=== PATIENT | female | born 1955 | race Caucasian/White ===

== ENCOUNTER 2017-03-16 18:39 | Emergency (ER) | payer OTHER ==
[2017-03-16] MEDS ORDERED: Take Home: Acetaminophen/HYDROcodone 325-10 MG, 5 Tab Pack PO ONE (19:01)
[2017-03-16] MEDS ORDERED: Take Home: Amoxicillin/Clavulanate K 875-125 MG Tab, 2 Tab Pack PO ONE ×2 (19:01→19:02)
[2017-03-16 19:22] VITALS: BP 185/95
--- NOTE | 2017-03-20 07:45 | ER ---
Date of Service: 03/16/2017 SUBJECTIVE: Dannielle presents to the emergency room with complaints of dental pain. The patient states that she broke one of her upper front teeth approximately 1 month ago and chipped the adjacent tooth approximately 2 days ago. She states that she did take a hydrocodone and has also taken ibuprofen and has been using Orajel with minimal improvement. She states that she has been experiencing discomfort for all of the day and states that she has been out on a motorcycle ride. PAST MEDICAL HISTORY: 1. Prempro. 2. Detrol LA. 3. Vitamin B12 deficiency. MEDICATIONS: 1. Aleve. 2. Ibuprofen. 3. Detrol LA. 4. Papaya. 5. Multivitamin. 6. Claritin. 7. Hydrocodone. 8. Prempro. 9. Vitamin B12. ALLERGIES: [place] and nuts. REVIEW OF SYSTEMS: Denies any difficulty with swallowing or managing her secretions. Denies any fever or chills. PHYSICAL EXAMINATION: General: This is a 61-year-old female patient, in no acute distress. Vital Signs: Blood pressure was 185/95 initially, was taken manually after approximately 20 minutes and was found to be 160/80, heart rate is 69, temperature is 35.5, respiratory rate 16, O2 saturations 99% on room air. Skin: Warm, pink, and dry. HEENT: She does have evidence of a fractured left upper canine. No obvious abscess noted. No significant cellulitis noted. ASSESSMENT: Dental pain. PLAN: The patient was started on Augmentin 875 mg 1 twice daily for 10 days. Also, did give her some hydrocodone 10/325, so she could take it more frequently without worrying about problem having too much Tylenol, as she was taking the 10/650 tablets. I would like her to follow up with a dentist as soon as possible. All questions were answered. MWK: 03/20/2017 00:39:49 MODL: 03/20/2017 05:04:46 /[id number]
== END 2017-03-16 19:20 | disposition home or self-care (01) ==
LOC: VM.ED 18:39
DX: K08.89 Other specified disorders of teeth and supporting structures (principal); Z91.018 Allergy to other foods
CPT/HCPCS: 99282; A9270

== ENCOUNTER 2019-06-30 22:33 | Emergency (ER) | payer OTHER ==
[2019-06-30] MEDS ORDERED: Ketorolac 30 MG/ML SDV IM ONE (22:54)
--- NOTE | 2019-06-30 23:04 | EDM.PDOC ---
ED HPI GENERAL MEDICAL PROBLEM - General Chief Complaint: General Stated Complaint: LEG CRAMPS Time Seen by Provider: 06/30/19 22:40 Source of Information: Reports: Patient, EMS History Limitations: Reports: No Limitations - History of Present Illness INITIAL COMMENTS - FREE TEXT/NARRATIVE: Patient states that her inner thighs and outer thighs started having a tightness and cramping feeling today about 8:00 tonight while at home. She states she normally has the same type of pain in her lower legs and has for the last 10 years she chronically takes Flexeril every 8 hours which usually takes care of the problems but tonight it did not she also took 2 naproxen about 3 PM for back pain which she has occasionally. She denies any other complaints at this time she states she is very active at work bending and squatting moving all day long she does take an estrogen supplement. She has no history of DVTs or PEs nor does any family members. She states she drinks 2-3 mellow yellow today with 4-5 glasses of water she has had no trauma she denies any chest pain heart racing or palpitations shortness breath lightheaded dizziness or syncopal or near syncopal episodes She has a negative Wells criteria for DVT score of 0 Onset: Today Duration: Hour(s): Quality: Reports: Burning, Throbbing, Other (10 out of 10 that last for 10:15 minutes at a time then goes away completely then returns she states she has been able to see her muscles spasm on the top of her thighs tonight) Severity: Severe Improves with: Reports: Other (time ) Worsens with: Reports: None Treatments DIRECTOR OF EPIDEMIOLOGY: Reports: Other (see below) (Tried Flexeril but it did not work) - Related Data Allergies Allergy/AdvReac Type Severity Reaction Status Date / Time strawberry [Moore] Allergy Airway Verified 03/16/17 18:47 Tightness nut Allergy Airway Uncoded 08/30/15 20:11 Tightness Home Meds: Home Meds Hydrocodone/Acetaminophen [Hydrocodon-Acetaminophn 10660] 1 each PO TID [History] Tolterodine Tartrate [Detrol LA] 1 cap PO DAILY 08/24/13 [History] Cyanocobalamin (Vitamin B12) [Vitamin B12] 1 tab PO DAILY 08/30/15 [History] Estrogen,Con/M-Progest Acet [Prempro 0.3 MG-1.5 MG] 1 tab PO DAILY 08/30/15 [ History] Loratadine [Claritin] 10 mg PO DAILY 08/30/15 [History] Multivitamin [Multivitamins] 1 each PO DAILY 08/30/15 [History] Papaya [Papaya Enzyme] 3 tab PO TID 08/30/15 [History] Ibuprofen 800 mg PO Q6H PRN 03/16/17 [History] Naproxen Sodium [Aleve] 220 mg PO BID PRN 03/16/17 [History] Past Medical History Musculoskeletal History: Reports: Arthritis, Back Pain, Chronic, Fibromyalgia, Osteoarthritis - Past Surgical History GI Surgical History: Reports: Bariatric Procedure Review of Systems - Review of Systems Review Of Systems: See Below Constitutional: Reports: No Symptoms. Denies: Chills, Diaphoresis, Fever, Weakness Mouth/Throat: Reports: No Symptoms Respiratory: Reports: No Symptoms. Denies: Shortness of Breath, Wheezing, Pleuritic Chest Pain Cardiovascular: Denies: Chest Pain, Irregular Heart Rate, Lightheadedness, Palpitations, Syncope GI/Abdominal: Reports: No Symptoms Genitourinary: Reports: No Symptoms Musculoskeletal: Reports: Leg Pain, Muscle Pain. Denies: Joint Pain, Joint Swelling Skin: Reports: No Symptoms Neurological: Reports: No Symptoms. Denies: Numbness, Syncope, Tingling, Weakness Psychiatric: Reports: No Symptoms ED EXAM, GENERAL - Physical Exam Exam: See Below Exam Limited By: No Limitations General Appearance: Alert, WD/WN, No Apparent Distress Respiratory/Chest: No Respiratory Distress, No Accessory Muscle Use GI/Abdominal: Soft, Non-Tender, No Organomegaly, No Distention Extremities: Normal Inspection, Normal Range of Motion, Non-Tender, No Pedal Edema, Normal Capillary Refill, Other (Exam the bilateral calf there is no edema no erythema or no tenderness palpation over the posterior calf negative Homans sign neurovascularly intact positive dorsalis pedis posterior tibialis patient has tenderness palpation over the anterior thighs but there is no edema swelling and ecchymosis redness and calor palpable cords no lymphadenopathy normal-appearing legs she has 5 / 5 upper extremity lower strength bilateral normal dorsiflexion and plantar flexion) Neurological: Alert, Oriented, CN II-XII Intact, Normal Cognition, Normal Gait, Normal Reflexes, No Motor/Sensory Deficits Psychiatric: Normal Affect, Normal Mood Skin Exam: Warm, Dry, Intact, Normal Color, No Rash Course - Vital Signs Text/Narrative:: Patient is okay been treated as outpatient states she will follow with primary care provider she'll be given 30 mg Toradol IM 30 mg Zanaflex Im She is okay with following up in the a.m. with her PCP Patient was rechecked states she is feeling better - Orders/Labs/Meds Orders: Active Orders 24 hr Category Date Time Status Orphenadrine [Norflex] Med 06/30/19 23:00 Active 30 mg IM Q12H Medication Orders Orphenadrine Citrate (Norflex) 30 mg IM Q12H KELLEE Last Admin: 06/30/19 23:11 Dose: 30 mg Meds: Medications Generic Name Dose Route Start Last Admin Trade Name Freq PRN Reason Stop Dose Admin Orphenadrine Citrate 30 mg 06/30/19 23:00 06/30/19 23:11 Norflex IM 30 mg Q12H KELLEE Administration Discontinued Medications Generic Name Dose Route Start Last Admin Trade Name Freq PRN Reason Stop Dose Admin Ketorolac Tromethamine 30 mg 06/30/19 22:54 06/30/19 23:10 Toradol IM 06/30/19 22:55 30 mg ONETIME ONE Administration Departure - Departure Time of Disposition: 23:20 Disposition: Home, Self-Care 01 Condition: Good Clinical Impression: Leg pain, bilateral, Muscle cramps - Discharge Information Instructions: Leg Cramps Referrals: Tesha Cazares DO [Primary Care Provider] - Forms: ED Department Discharge Additional Instructions: Follow-up with her primary care provider in the next 24 hours return to the emergency room for anything changes or gets worse continue take all medicines as directed - My Orders Last 24 Hours: My Active Orders 06/30/19 23:00 Orphenadrine [Norflex] 30 mg IM Q12H - Assessment/Plan Last 24 Hours: My Active Orders 06/30/19 23:00 Orphenadrine [Norflex] 30 mg IM Q12H
[2019-07-01 04:12] VITALS: BP 134/84; PULSE 79
== END 2019-06-30 23:40 | disposition home or self-care (01) ==
LOC: VM.ED 22:33
DX: M62.838 Other muscle spasm (principal); G89.29 Other chronic pain; Z79.899 Other long term (current) drug therapy; Z91.018 Allergy to other foods
CPT/HCPCS: 96372; 99283; J1885; J2360

== ENCOUNTER 2022-03-06 12:42 | Emergency (ER) | payer OTHER ==
[2022-03-06] MEDS ORDERED: hydrOXYzine HCl 50 MG/ML SDV IM ONE (12:57)
[2022-03-06] MEDS ORDERED: Famotidine 20 MG Tab PO ONE (12:58)
[2022-03-06 13:14] VITALS: BP 138/70; PULSE 79
== END 2022-03-06 13:40 | disposition home or self-care (01) ==
LOC: VM.ED 12:42
DX: T78.40XA Allergy, unspecified, initial encounter (principal); L29.9 Pruritus, unspecified; Z91.018 Allergy to other foods
CPT/HCPCS: 96372; 99283; A9270; J3410

== ENCOUNTER 2023-07-04 20:30 | Emergency (ER) | payer OTHER ==
[2023-07-04 20:49] VITALS: PULSE 78
[2023-07-04 21:01] LABS: BASOPHILS ABSOLUTE AUTO 0.1 x10^3/uL (0.0-0.2); EOSINOPHILS ABSOLUTE AUTO 0.3 x10^3/uL (0.0-0.5); EOSINOPHILS PERCENT AUTO 3.8 % (0.0-4.0); HEMATOCRIT 34.7 % (33.0-47.0); HEMOGLOBIN 11.7 g/dL (12.0-16.0); LYMPHOCYTES ABSOLUTE AUTO 1.8 x10^3/uL (1.0-4.8); LYMPHOCYTES PERCENT AUTO 26.9 % (25.0-50.0); MEAN CORPUSCULAR HEMOGLOBIN 29.4 pg (26.0-32.0); MEAN CORPUSCULAR HGB CONC 33.7 g/dL (32.0-36.0); MEAN CORPUSCULAR VOLUME 87.2 fL (78.0-93.0); MONOCYTES ABSOLUTE AUTO 0.4 x10^3/uL (0.0-0.8); MONOCYTES PERCENT AUTO 6.5 % (2.0-11.0); NEUTROPHILS ABSOLUTE AUTO 4.2 x10^3/uL (1.8-7.7); NEUTROPHILS PERCENT AUTO 61.8 % (50.0-80.0); PLATELET COUNT,PLT 305 x10^3/uL (130-400); RED BLOOD CELL COUNT 3.98 x10^6/uL (4.00-5.50); WHITE BLOOD CELL COUNT,WBC 6.8 x10^3/uL (4.0-10.0)
[2023-07-04 21:12] VITALS: BP 102/67
[2023-07-04 21:23] LABS: A/G RATIO 0.91; ALANINE AMINOTRANSFERASE,ALT 35 U/L (14-59); ALBUMIN 3.1 g/dL (3.4-5.0); ALKALINE PHOSPHATASE 83 U/L (46-116); ASPARTATE AMNIOTRANSFERASE,AST 41 U/L (15-37); BILIRUBIN TOTAL 0.2 mg/dL (0.2-1.0); BLOOD UREA NITROGEN,BUN 24 mg/dL (7-18); CALCIUM 8.2 mg/dL (8.5-10.1); CARBON DIOXIDE,CO2 31 mmol/L (21-32); CHLORIDE,CL 102 mmol/L (98-107); CREATININE 0.8 mg/dL (0.55-1.02); GLUCOSE RANDOM 66 mg/dL (70-99); MAGNESIUM 1.8 mg/dL (1.8-2.4); POTASSIUM,K 3.3 mmol/L (3.5-5.1); PROTEIN TOTAL,TP 6.5 g/dL (6.4-8.2); SODIUM,NA 140 mmol/L (136-145)
[2023-07-04 21:24] LABS: ANION GAP 10.3 mmol/L (5-15); ESTIMATED GFR 82 mL/min (>=60)
== END 2023-07-04 21:48 | disposition home or self-care (01) ==
LOC: VM.ED 20:30
DX: R25.2 Cramp and spasm (principal); Z79.899 Other long term (current) drug therapy; Z91.018 Allergy to other foods
CPT/HCPCS: 36415; 80053; 83735; 85025; 99284